=== PATIENT | female | born 1945 | race Caucasian/White ===

== ENCOUNTER → 2017-06-18 | Day surgery (SDC) | payer OTHER ==
[~2017-06-18] MED LIST: APREPITANT 40 MG CAP ONE; BUPIVACAINE/EPINEPHRINE 0.5% PF 30 ML VIAL ONE; EPINEPHrine HCL (1:1000) 1 MG/ML VIAL OTHER ONE; KETOROLAC TROMETHAMINE 30 MG/ML (IVP) VIAL IV PUSH ONE; LACTATED RINGER'S 1000 ML INJ 1,000 ML ONE; MIDAZOLAM HCL 2 MG/2 ML VIAL ONE; ONDANSETRON HCL 4 MG/2 ML VIAL IV PUSH ONE; PROPOFOL 200 MG/20 ML AMP IV ONE; ceFAZolin INJ 1,000 MG VIAL ONE
--- NOTE | 2017-06-18 10:11 | MP ---
cc: RAYNE JO M.D. DATE OF SURGERY: 06/18/2017 PREOPERATIVE DIAGNOSIS: Right knee medial and lateral meniscus tear. POSTOPERATIVE DIAGNOSES Right knee medial and lateral meniscus tear. PROCEDURE Right knee arthroscopic partial medial and lateral meniscectomy. SURGEON Dr. Rayne Jo ANESTHESIA General. ESTIMATED BLOOD LOSS: Less than 10 cc. TOURNIQUET TIME: Zero COMPLICATIONS: None. JUSTIFICATION: This patient is a 71-year female who injured the right knee. She has had persistent pain, In regards to her condition failed conservative treatment. Clinical examination confirmed the above-named findings. The patient counseled as to the risks, benefits, alternatives to the above named proposed surgical procedure. She did wish to proceed with surgery. PROCEDURE IN DETAIL: A written consent was obtained. The patient identified by name, taken to operating room and placed in supine position, on the operating room table, general anesthesia was administered as well as 1 gram of IV Ancef. Right thigh carefully placed in well-padded leg morgan, right lower tree prepped draped using as alcohol, Hibiclens solution and DuraPrep solution after time-out was performed a standard medial and lateral parapatellar arthroscopic portal was established. The joint revealed mild grade 2 chondromalacia. The medial compartment revealed a complex tear midbody of the medial meniscus, extending into posterior horn. An arthroscopic Biter followed by arthroscopic shaver was introduced in the medial compartment to perform partial meniscectomy. The meniscal rim was probed and stable minimal chondromalacia medial compartment was noted. The intercondylar notch revealed their to be slight laxity of the anterior cruciate ligament, however the ACL, PCL was still intact. The lateral compartment did reveal a tear of the anterolateral lateral meniscus extending into the midbody. An arthroscopic shaver was introduced into the lateral compartment to perform partial lateral meniscectomy meniscal rim was again probed and noted to be stable. Minimal chondromalacia of the lateral compartment was noted. At the conclusion of the surgical procedure, 30 cc of 0.50% Marcaine with epinephrine was injected into the knee joint. The arthroscopic portal was closed 3-0 Prolene suture. Sterile dressing applied. The patient tolerated the procedure well with no intraaortic complications noted. MD AL Vance/merary /9:49 AM /10:04 AM
== END | disposition home or self-care (01) ==
LOC: ESDC 08:35
PROVIDERS: ATTEND Orthopaedic Surgery Sports Medicine
DX: S83.231A Complex tear of medial meniscus, current injury, right knee, initial encounter (principal); S83.281A Other tear of lateral meniscus, current injury, right knee, initial encounter
CPT/HCPCS: 01400; 29880; J0171; J0690; J1885; J2250; J2405; J3010; J7120; J8501